=== PATIENT | female | born 1970 | race Caucasian/White ===

== ENCOUNTER → 2016-10-18 | Outpatient (CLI) | payer MEDICARE, MEDICAID ==
[~2016-10-18] MED LIST: CYMBALTA60 MG PO; FERROUS SULFAT325 M1 PO; HYDROCODON-ACE1 EAC4 PO; KLONOPIN0.5 MG PO; KLOR-CON M1010 MEQ PO; LASIX20 MG PO; MELATONIN3 M2 PO; MULTI-VITAMIN1 EACH PO; NAPROSYN500 MG PO; NEURONTIN300 MG PO; NORCO 5-325 TA1 EACH PO; OGESTREL TABLE1 EACH PO; TYLENOL500 MG PO; VITAMIN D31000 UNI1 PO; ZANTAC300 MG PO
== END | disposition short-term general hospital (02) ==
LOC: CLORTH 09-06 09:22
DX: Z47.89 Encounter for other orthopedic aftercare (principal)

== ENCOUNTER → 2016-11-15 | Outpatient (CLI) | payer MEDICARE, MEDICAID | END | disposition short-term general hospital (02) | LOC: CLORTH 10:03 | DX: Z47.89 Encounter for other orthopedic aftercare (principal) ==

== ENCOUNTER → 2016-12-27 | Outpatient (CLI) | payer MEDICARE, MEDICAID | END | disposition short-term general hospital (02) | LOC: CLORTH 09:44 | DX: Z47.89 Encounter for other orthopedic aftercare (principal) ==